=== PATIENT | female | born 1995 | race Caucasian/White ===

== ENCOUNTER 2017-09-21 19:52 | Inpatient (IN) ==
[2017-09-21 19:09] VITALS: RESP 16
[~2017-09-21 19:52] MED LIST: Lactated Ringers 1,000 ML PRIMARY IV ONE; NORMAL SALINE 10 ML SYRINGE FLUSH IVP PRN
[2017-09-21 20:34] LABS: Hematocrit [HCT] 37.3 % (37.0-47.0); Hemoglobin [HGB] 12.3 g/dL (12.0-16.0); MEAN CORPUSCULAR HEMOGLOBIN 27.7 PG (27-31); MEAN PLATELET VOLUME 10.9 FL (7.4-12.2); RED BLOOD COUNT 4.44 10^6/uL (4.20-5.40)
[2017-09-21] MEDS ORDERED: NORMAL SALINE 10 ML SYRINGE FLUSH IVP PRN ×2 (20:52→21:33)
[2017-09-21] MEDS ORDERED: LIDOCAINE W/ SODIUM BICARB 0.5 ML SYR SUBD PRN (21:33)
[2017-09-21] MEDS ORDERED: OXYTOCIN 10 UNIT/1 ML IM PRN (21:33)
[2017-09-21] MEDS ORDERED: Famotidine Inj 20 MG in Normal Saline Flush 10 ML IVP PRN ×4 (21:33)
[2017-09-21] MEDS ORDERED: Nalbuphine Inj 20 MG/ML Ampule IVP PRN (21:33)
[2017-09-21] MEDS ORDERED: fentaNYL Inj 100 MCG/2 ML VIAL IV PRN (21:33)
[2017-09-21] MEDS ORDERED: ePHEDrine Inj 5 MG in Normal Saline Flush 1 ML IVP PRN (21:33)
[2017-09-21] MEDS ORDERED: Carboprost Inj 250 MCG/ML AMP IM PRN (21:33)
[2017-09-21] MEDS ORDERED: CALCIUM CARBONATE 500 MG (TUMS) CHEWABLE TABLET PO PRN (21:33)
[2017-09-21] MEDS ORDERED: MISOPROSTOL 200 MCG TABLET RECTAL PRN (21:33)
[2017-09-21] MEDS ORDERED: NALOXONE 0.4 MG/1 ML VIAL IVP PRN (21:33)
[2017-09-21] MEDS ORDERED: METHYLERGONOVINE MALEATE 0.2 MG/1 ML VIAL IM PRN (21:33)
[2017-09-21] MEDS ORDERED: LIDOCAINE HCL 2 % 10 ML JELLY URO-JECT TOPICAL PRN (21:33)
[2017-09-21] MEDS ORDERED: Phenylephrine Inj 50 MCG in Normal Saline Flush 0.5 ML IVP PRN (21:33)
[2017-09-21] MEDS ORDERED: TERBUTALINE SULFATE 1 MG/1 ML SDV SUBCUT PRN (21:33)
[2017-09-21] MEDS ORDERED: CefOXitin Inj 2 GM in Sodium Chloride 0.9% 100 ML IV PRN (21:33)
[2017-09-21] MEDS ORDERED: ONDANSETRON 4 MG/2 ML VIAL IVP PRN (21:33)
[2017-09-21] MEDS ORDERED: Lidocaine 1% 10 MG/ML - 20 ML VIAL SUBCUT PRN (21:33)
[2017-09-21] MEDS ORDERED: CITRIC ACID/SODIUM CITRATE 30 ML CUP PO PRN (21:33)
[2017-09-21] MEDS ORDERED: diphenhydrAMINE 50 MG/1 ML VIAL IVP PRN (21:33)
[2017-09-21] MEDS ORDERED: BUTORPHANOL TARTRATE 2 MG/1 ML VIAL IVP PRN (21:33)
[2017-09-21] MEDS ORDERED: Naloxone Inj 0.01 MG in Normal Saline Flush 1 ML IVP PRN (21:33)
[2017-09-21] MEDS ORDERED: Metoclopramide Inj 10 MG/2 ML VIAL IV PRN (21:33)
[2017-09-21] MEDS ORDERED: BETAMET ACET/BETAMET NA PH 6 MG/1 ML - 5 ML IM SCH (21:45)
[2017-09-21] MEDS ORDERED: Lactated Ringers-OB Dept 1,000 ML PRIMARY IV SCH (21:45)
[2017-09-21] MEDS ORDERED: Oxytocin 20 Units + LR 20 UNIT/1,000 ML BAG IV SCH (21:45)
--- NOTE | 2017-09-21 21:45 | OB.PROGRES ---
Interval History: The patient is a 21-year-old at 36-2/7 weeks who has been vignesh last night and then more contractions since 1500 hrs. today. The contractions have been quite strong and initially every 5 minutes but now more frequent. The patient states that her contractions are not easing up. The patient has a history of severe preeclampsia with the delivery at 25 weeks and then a repeat C -section at 37 weeks for early labor. The patient has a posterior placenta. This she has been in the labor and delivery for outpatient contractions. The patient has not received betamethasone this for lung maturity. The patient did receive betamethasone for her 25 weeker. Past medical history Past surgical history was 2 No known drug allergies No tobacco alcohol or drugs in Objective - Cervical Exam Cervical Exam: Cervix was a fingertip to 1/thick/high cephalic and cervix was moderate-firm in consistency [place]: Contractions every 2-3 minutes on the monitor Heart Rate Interpretation Category: Category I - Labs CBC and BMP: 09/21/17 20:30 - Vital Signs Last Taken Vital Signs: Vital Signs - Last Taken Temperature 97.9 F 09/21/17 18:46 Pulse Rate 81 09/21/17 18:46 Respiratory Rate 16 09/21/17 18:46 Blood Pressure 119/74 09/21/17 18:46 Pulse Ox 98 09/21/17 18:46 - Additional Details Additional Details: Nontoxic-appearing Lungs clear to auscultation Heart regular rate and rhythm Abdomen is gravid, soft, nontender, no guarding or rebound Assessment and Plan - Assessment / Plan Additional Assessment/Plan Details: Assessment: IUP 36-2/7 weeks with history of 2. First at 25 weeks and the patient believes that this was a low transverse . HEENT was a low transverse section at 37 weeks for early labor. Patient's cervix was checked by the nurse about an hour and a half before I checked her cervix. The cervix did not change. However, the patient is vignesh quite frequently-every 2-3 minutes and the patient states they are very uncomfortable. Much more uncomfortable than her contractions when she was 37 weeks and had her repeat last . GBS has not been completed Plan: Usually, with a history of 2 sections and the fact that she is vignesh quite regularly at 36-2/7 weeks, I would complete a repeat section now. However, we do not have the nursery and we do not have the nursing staff to take care of another infant if there are respiratory or other issues since the nurses are already caring for a infant here plus other patients. I have discussed with the patient that I could administer betamethasone we can transfer the patient to [place]. Perhaps the patient with slow her contractions and she could receive the second dose of betamethasone and perhaps not even deliver but if her contractions continued, she could deliver after the steroid window. Of course, if her contractions worsen or if her cervix starts to dilate , her would have to be done earlier. Another option that the family asked about was delivering here and if the baby needed to be transferred that we could do that. That would not be my druthers since we do not have the current nursing staff, but this could possibly be completed. The family also asked about transferring the patient to [place], [place]. I have not done this before and usually patient's or not transferred to [place], [place] but to [place], [place] where our maternal medicine consultants are. I will have the nurse administer betamethasone 12 mg IM now. This is for aiding in lung maturity in case the patient does not deliver acutely. The patient expressed understanding with this and she previously received betamethasone with her first when she had severe preeclampsia 25 weeks. Group B strep will also be completed.
[2017-09-22 03:03] VITALS: BP 117/61; TEMP 98; O2SAT 97
== END 2017-09-22 00:40 | disposition short-term general hospital (02) | DRG 778 ==
LOC: OBIP 21:33
PROVIDERS: ADMIT Obstetrics & Gynecology; ATTEND Obstetrics & Gynecology